=== PATIENT | female | born 1985 | race Caucasian/White ===

== ENCOUNTER 2018-01-07 11:15 | Observation (INO) ==
[2018-01-07] MEDS ORDERED: Acetaminophen 325 MG Tablet PO PRN (23:50)
--- NOTE | 2018-01-07 23:54 | P.HPIM ---
History of Present Illness Primary Care Physician: UNKNOWN History of Present Illness: 32-year-old female with no medical history presented to the [facility] with complaints of a fever that began at 5 AM this morning along with headache, nausea, vomiting and diarrhea 2. Patient states her highest fever at home was 101. She also complains of body aches and while in [facility] it was decided to rule her out for meningitis. LP was completed and results were negative. She denies any associated chest pain, shortness of breath, sore throat, cough, sputum production, or dysuria. Inpatient Certification: I certify that the inpatient services were ordered in accordance with Medicare regulations governing the order. This includes certification that hospital inpatient services are reasonable and necessary and in the case of services not specified as inpatient-only under 42 CFR 419.22(n), that they are appropriately provided as inpatient services in accordance to with the 2-midnight benchmark under 43 CFR 412.3(e) Review of Systems All other systems reviewed negative except as stated in HPI PMFSH - History History Provided By: Patient - Medical / Surgical Hx Neg / Unobtainable Medical Problems Denied: Yes Surgical History: No Previous Surgery - Medical History Medical History: Medical History (Last Reviewed 01/08/18 @ 00:38 by VIMAL Cole) Patient denies medical problems - Surgical History Surgical History: Surgical History (Last Reviewed 01/08/18 @ 00:38 by VIMAL Cole) No history of previous surgery - Family History Family History: Family History (Last Updated 01/08/18 @ 00:38 by VIMAL Cole) Mother Diabetes - Social History I have reviewed the patient's Social History: Yes - Tobacco History Second Hand Smoke Exposure: Yes Smoking Status: Never smoker - Alcohol History How Often Do You Have a Drink Containing Alcohol: 2 to 3 times a week - Substance Use History Substance History: No History of Abuse Medications and Allergies Active Medications: Active Medications Acetaminophen (Tylenol) 650 mg PO Q4H PRN PRN Reason: Temp > 100.4 Allergies Allergy/AdvReac Type Severity Reaction Status Date / Time No Known Allergies Allergy Unverified 01/07/18 11:27 Home Medications Medication Instructions Recorded Confirmed Type No Known Home Medications 01/07/18 01/08/18 History Exam Vital signs: Vital Signs 01/07/18 23:12 Respiratory Rate 18 Narrative: GENERAL: This is a well-nourished, well-developed patient, in no apparent distress. SKIN: Warm, dry, intact, no ecchymosis or open lesions EYES: Pupils equal round and reactive, no scleral edema or drainage CARDIOVASCULAR: Regular rate and rhythm without murmurs, gallops, or rubs. RESPIRATORY: Clear to auscultation. Breath sounds equal bilaterally. No wheezes , rales, or rhonchi. GASTROINTESTINAL: Abdomen soft, non-tender, nondistended. Normal active bowel sounds MUSCULOSKELETAL: Extremities without clubbing, cyanosis, or edema. NEURO: Alert & Oriented x4 to person, place, time, situation. Moves all ext x4 Caprini VTE Risk Assessment Caprini VTE Risk Assessment: No/Low Risk (score <= 1) Caprini Risk Assessment Model: Point Value = 1 Point Value = 2 Point Value = 3 Point Value = 5 Age 41-60 Minor surgery BMI > 25 kg/m2 Swollen legs Varicose veins or History of unexplained or recurrent spontaneous Oral contraceptives or hormone replacement Sepsis (< 1 month) Serious lung disease, including pneumonia (< 1 month) Abnormal pulmonary function Acute myocardial infarction Congestive heart failure (< 1 month) History of inflammatory bowel disease Medical patient at bed rest Age 61-74 Arthroscopic surgery Major open surgery (> 45 min) Laparoscopic surgery (> 45 min) Malignancy Confined to bed (> 72 hours) Immobilizing plaster cast Central venous access Age >= 75 History of VTE Family history of VTE Factor V Leiden Prothrombin [id number] Lupus anticoagulant Anticardiolipin antibodies Elevated serum homocysteine Heparin-induced thrombocytopenia Other congenital or acquired thrombophilia Stroke (< 1 month) Elective arthroplasty Hip, pelvis, or leg fracture Acute spinal cord injury (< 1 month) Prophylaxis Regimen: Total Risk Factor Score Risk Level Prophylaxis Regimen 0-1 Low Early ambulation 2 Moderate Order ONE of the following: *Sequential Compression Device (SCD) *Heparin 5000 units SQ BID 3-4 Higher Order ONE of the following medications: *Heparin 5000 units SQ TID *Enoxaparin/Lovenox 40 mg SQ daily (WT < 150 kg, CrCl > 30 mL/min) *Enoxaparin/Lovenox 30 mg SQ daily (WT < 150 kg, CrCl > 10-29 mL/min) *Enoxaparin/Lovenox 30 mg SQ BID (WT < 150 kg, CrCl > 30 mL/min) AND/OR *Sequential Compression Device (SCD) 5 or more Highest Order ONE of the following medications: *Heparin 5000 units SQ TID (Preferred with Epidurals) *Enoxaparin/Lovenox 40 mg SQ daily (WT < 150 kg, CrCl > 30 mL/min) *Enoxaparin/Lovenox 30 mg SQ daily (WT < 150 kg, CrCl > 10-29 mL/min) *Enoxaparin/Lovenox 30 mg SQ BID (WT < 150 kg, CrCl > 30 mL/min) AND *Sequential Compression Device (SCD) Assessment and Plan - Plan Fever of unknown etiology CTA reviewed and negative Lumbar puncture reviewed and negative UA abnormal, likely contaminated, culture pending Empirically treat with IV Zosyn WBC in a.m. Tylenol as needed Stool studies ordered Emetics as needed IVF ordered Hypokalemia likely due to patient vomiting and diarrhea Supplementation ordered, added to IVF Labs in a.m. DVT prophylaxis: SCDs Discussed Condition With: Patient and RN
[2018-01-08] MEDS: Piperacil/Tazo 3.375 GM Premix 50 ML IV.SIG SCH ×5 (00:31→17:59)
[2018-01-08 05:59] LABS: Baso % (Auto) 0.4 % (0.0-2.0); Eos % (Auto) 0.8 % (0.0-4.0); Hematocrit 38.1 % (35.0-46.0); Hemoglobin 11.9 gm/dL (11.6-15.3); Lymph % (Auto) 24.1 % (9.0-44.0); Mean Corpuscular HGB Conc 31.3 % (32.0-36.0); Mean Corpuscular Hemoglobin 26.5 pg (27.0-34.0); Mean Corpuscular Volume 84.6 fL (80.0-100.0); Mean Platelet Volume 9.1 fL (7.0-11.0); Mono # (Auto) 0.4 th/mm3 (0.0-0.9); Mono % (Auto) 9.7 % (0.0-8.0); Neut # (Auto) 2.7 th/mm3 (1.8-7.7); Platelet Count 179 th/mm3 (150-450); Red Cell Distribution Width 17.4 % (11.6-17.2); White Blood Count 4.1 th/mm3 (4.0-11.0)
[2018-01-08 06:28] LABS: Calcium 7.7 mg/dL (8.5-10.1); Carbon Dioxide 20.9 meq/L (21.0-32.0); Magnesium 1.7 mg/dL (1.5-2.5)
[2018-01-08 06:33] LABS: Potassium 2.8 meq/L (3.5-5.1)
--- NOTE | 2018-01-08 11:01 | P.PNIM ---
Subjective Interval history: Reports that she is feeling better. Has not had any diarrhea since coming in. Headache better. No abdominal pain. Tolerating breakfast this morning. Physical Exam Vital signs: Vital Signs 01/07/18 23:12 01/08/18 00:46 01/08/18 04:05 Temperature 98.2 F Pulse Rate 107 H 91 H Respiratory Rate 18 18 Blood Pressure 108/65 Pulse Oximetry 96 01/08/18 04:31 01/08/18 08:00 Temperature 99.0 F 98.3 F Pulse Rate 97 H 83 Respiratory Rate 18 17 Blood Pressure 109/58 L 96/52 L Pulse Oximetry 96 98 Intake & Output 01/07/18 01/08/18 01/08/18 18:59 06:59 18:59 Intake Total 680 / 680 Output Total 500 / 500 Balance 180 / 180 Weight 59 kg Intake: IV 100 / 100 Zosyn 3.375 GM Premix 50 ML @ 100 / 100 100 mls/hr IV.SIG Q6H PUJA Rx#: [id number] Oral 580 / 580 Output: Urine 500 / 500 Other: # Bowel Movements 1 Weight On Admission 59 kg Narrative: GENERAL: This is a well-nourished, well-developed patient, in no apparent distress. CARDIOVASCULAR: Regular rate and rhythm without murmurs, gallops, or rubs. RESPIRATORY: Clear to auscultation. Breath sounds equal bilaterally. No wheezes , rales, or rhonchi. GASTROINTESTINAL: Abdomen soft, non-tender, nondistended. Normal active bowel sounds MUSCULOSKELETAL: Extremities without clubbing, cyanosis, or edema. NEURO: Alert & Oriented x4 to person, place, time, situation. Moves all ext x4 Results - Labs CBC & Chem 7: 01/08/18 05:26 01/08/18 05:26 Laboratory Results - last 24 hr 01/08/18 01/08/18 05:26 05:26 WBC 4.1 RBC 4.50 Hgb 11.9 Hct 38.1 MCV 84.6 MCH 26.5 L MCHC 31.3 L RDW 17.4 H Plt Count 179 MPV 9.1 Neut % (Auto) 65.0 Lymph % (Auto) 24.1 [place] % (Auto) 9.7 H Eos % (Auto) 0.8 Baso % (Auto) 0.4 Neut # (Auto) 2.7 Lymph # (Auto) 1.0 [place] # (Auto) 0.4 Eos # (Auto) 0.0 Baso # (Auto) 0.0 WBC Differential . Differential Comment Auto diff final Sodium 141 Potassium 2.8 L* Chloride 110 H Carbon Dioxide 20.9 L Anion Gap 10 BUN 6 L Creatinine 0.78 Estimated GFR 86 L Random Glucose 86 Calcium 7.7 L D Magnesium 1.7 - Procedures 01/07 LP Assessment and Plan - Plan 32-year-old white female admitted for fevers and chills, headache 1. Fever of unknown etiology with questionable gastroenteritis CTA reviewed and negative Status post lumbar puncture performed in the ED reviewed and negative UA abnormal, likely contaminated, culture pending Blood cultures pending. Empirically on IV Zosyn until final cultures reviewed Tylenol as needed Stool studies ordered IV anti-emetics as needed Continue with IVF 2. Hypokalemia likely due to patient vomiting and diarrhea Repleted 3. Nausea vomiting diarrhea likely gastroenteritissymptoms improved with fluids and supportive care, initiate Lactinex. DVT prophylaxis: SCDs Discharge Planning: Possible discharge in the morning if cultures remain negative and the patient remains afebrile.
[2018-01-08] MEDS ORDERED: Sod Chloride 0.9% Inj 1,000 ML IV.SIG SCH (12:30)
[2018-01-08] MEDS: Ibuprofen 400 MG Tablet PO PRN ×2 (14:58→20:46)
[2018-01-08] MEDS: Lactobacillus Acidophilus/L. Spores Tablet PO SCH (20:19)
[2018-01-09] MEDS: Piperacil/Tazo 3.375 GM Premix 50 ML IV.SIG SCH ×2 (01:16→06:21)
[2018-01-09 06:14] LABS: Baso % (Auto) 0.3 % (0.0-2.0); Eos # (Auto) 0.1 th/mm3 (0.0-0.4); Eos % (Auto) 2.7 % (0.0-4.0); Hematocrit 35.7 % (35.0-46.0); Hemoglobin 11.2 gm/dL (11.6-15.3); Lymph # (Auto) 1.3 th/mm3 (1.0-4.8); Lymph % (Auto) 29.4 % (9.0-44.0); Mean Corpuscular HGB Conc 31.4 % (32.0-36.0); Mean Corpuscular Hemoglobin 26.7 pg (27.0-34.0); Mean Corpuscular Volume 84.9 fL (80.0-100.0); Mean Platelet Volume 9.3 fL (7.0-11.0); Mono # (Auto) 0.4 th/mm3 (0.0-0.9); Mono % (Auto) 8.6 % (0.0-8.0); Neut # (Auto) 2.7 th/mm3 (1.8-7.7); Platelet Count 160 th/mm3 (150-450); Red Blood Count 4.21 mil/mm3 (4.00-5.30); Red Cell Distribution Width 17.9 % (11.6-17.2); White Blood Count 4.6 th/mm3 (4.0-11.0)
[2018-01-09 06:34] LABS: Anion Gap 7 meq/L (5-15); Blood Urea Nitrogen 5 mg/dL (7-18); Calcium 7.8 mg/dL (8.5-10.1); Chloride 115 meq/L (98-107); Glomerular Filtration Rate Greater Than 89 mL/min (>89); Glucose,Random 85 mg/dL (74-106); Potassium 3.5 meq/L (3.5-5.1); Sodium 143 meq/L (136-145)
[2018-01-09] MEDS: Lactobacillus Acidophilus/L. Spores Tablet PO SCH (08:15)
[2018-01-09] MEDS: Ibuprofen 400 MG Tablet PO PRN (08:16)
--- NOTE | 2018-01-09 09:52 | P.PNIM ---
Subjective Interval history: Patient says she is feeling better today. Reports that she gets headaches on a regular basis during her menstrual cycle which she is currently on over the past few days. The nausea and the fever are new however. She says she feels like going home today. Physical Exam Vital signs: Vital Signs 01/08/18 11:50 01/08/18 16:00 01/08/18 19:36 Temperature 97.9 F 98.1 F Pulse Rate 74 79 75 Respiratory Rate 17 18 Blood Pressure 91/56 L 120/81 Pulse Oximetry 98 99 01/08/18 20:00 01/08/18 21:16 01/09/18 00:00 Temperature 97.8 F Pulse Rate 80 70 Respiratory Rate 16 18 Blood Pressure 121/66 Pulse Oximetry 100 01/09/18 00:44 01/09/18 04:24 01/09/18 04:52 Temperature 98.4 F 98.0 F Pulse Rate 71 70 73 Respiratory Rate 17 18 Blood Pressure 92/54 L 96/53 L Pulse Oximetry 96 96 Intake & Output 01/08/18 01/09/18 01/09/18 18:59 06:59 18:59 Intake Total 2100 / 2099 2580 / 2580 1000 / 1000 Output Total 300 / 300 Balance 1800 / 1800 2580 / 2580 1000 / 1000 Weight 59 kg Intake: IV 2099 / 2099 2099 / 2099 1000 / 1000 NS + KCl 20 mEq Inj 1,000 ML @ 1000 / 1000 2000 / 2000 1000 / 1000 100 mls/hr IV.CONT .Q10H PUJA Rx #:[id number] Zosyn 3.375 GM Premix 50 ML @ 100 / 100 100 / 100 100 mls/hr IV.SIG Q6H PUJA Rx#: [id number] NS Inj 1,000 ML @ Wide Open IV. 1000 / 1000 SIG BOLUS PUJA Rx#:[id number] Oral 480 / 480 Output: Urine 300 / 300 Other: # Voids 3 # Bowel Movements 1 Narrative: GENERAL: Patient lying in bed. Appears comfortable. SKIN: Warm and dry. HEAD: Normocephalic. EYES: No scleral icterus. No injection or drainage. NECK: Supple, trachea midline. No JVD. CARDIOVASCULAR: Regular rate and rhythm without murmurs, gallops, or rubs. RESPIRATORY: Breath sounds equal bilaterally. No accessory muscle use. GASTROINTESTINAL: Abdomen soft, non-tender, nondistended. MUSCULOSKELETAL: No cyanosis, or edema. BACK: Nontender without obvious deformity. No CVA tenderness. Results - Labs CBC & Chem 7: 01/09/18 05:34 01/09/18 05:34 Laboratory Results - last 24 hr 01/08/18 01/09/18 01/09/18 12:10 05:34 05:34 WBC 4.6 RBC 4.21 Hgb 11.2 L Hct 35.7 MCV 84.9 MCH 26.7 L MCHC 31.4 L RDW 17.9 H Plt Count 160 MPV 9.3 Neut % (Auto) 59.0 Lymph % (Auto) 29.4 [place] % (Auto) 8.6 H Eos % (Auto) 2.7 Baso % (Auto) 0.3 Neut # (Auto) 2.7 Lymph # (Auto) 1.3 [place] # (Auto) 0.4 Eos # (Auto) 0.1 Baso # (Auto) 0.0 WBC Differential . Differential Comment Auto diff final Sodium 143 Potassium 3.3 L 3.5 Chloride 115 H Carbon Dioxide 21.0 Anion Gap 7 BUN 5 L Creatinine 0.57 Estimated GFR Greater than 89 Random Glucose 85 Calcium 7.8 L - Procedures 01/07 LP Assessment and Plan - Plan 32-year-old white female admitted for fevers and chills, headache //Fever of unknown etiology with questionable gastroenteritis CTA reviewed and negative Status post lumbar puncture performed in the ED reviewed and negative UA abnormal, likely contaminated, culture pending Blood cultures pending. Empirically on IV Zosyn until final cultures reviewed Tylenol as needed Stool studies ordered IV anti-emetics as needed Continue with IVF = Wait for cultures to be negative 48 hours. Patient has headaches on a regular basis coinciding with her menstrual cycle which she is currently on. This time she had nausea, vomiting, fever. Reviewing lumbar puncture it appears noninfectious. Will discharge later today if cultures negative 48 hours. //Hypokalemia likely due to patient vomiting and diarrhea Repleted //Nausea vomiting diarrhea likely gastroenteritissymptoms improved with fluids and supportive care, initiate Lactinex. DVT prophylaxis: SCDs Discussed Condition With: Patient, mother at bedside. Discharge Planning: Discharge home when blood cultures negative 48 hours.
[2018-01-09 10:54] VITALS: BP 113/63; PULSE 68; RESP 17; TEMP 97.3; O2SAT 99
== END 2018-01-09 12:46 | disposition home or self-care (01) ==
LOC: NEDDLT 11:15 → N07 23:21 → INTOOBSV 23:21
PROVIDERS: ADMIT Internal Medicine; ATTEND Internal Medicine